=== PATIENT | male | born 2005 | race Caucasian/White ===

== ENCOUNTER 2023-08-11 13:30 | Emergency (ER) | payer BC, SELFPAY ==
[2023-08-11 13:38] VITALS: BP 130/66; PULSE 101; RESP 20; TEMP 36.4; O2SAT 100
[2023-08-11 15:27] VITALS: BP 136/73; PULSE 79; RESP 18; TEMP 36.8; O2SAT 100
[2023-08-11 15:55] VITALS: BP 124/79; PULSE 82; RESP 17; O2SAT 100
--- NOTE | 2023-08-11 15:57 | ED.EPISTAXIS ---
HPI - Epistaxis General Chief complaint: Epistaxis Stated complaint: nose bleed Time Seen by Provider: 08/11/23 15:57 Source: patient Mode of arrival: ambulatory Limitations: no limitations History of Present Illness HPI Narrative: Patient is a 18-year-old male who presents the ED with report of epistaxis. Patient reports he has had intermittent nosebleeds over the last 3 days. He notes he lives in a dorm room at [facility] and his room has been very dry lately. He does have history of nosebleeds in the past with weather changes. Today, nosebleed began approximately 2 hours prior to arrival and he was unable to control bleeding at home. States it felt as though was coming out of his left nare. Feels blood running down the back of his throat now. Denies dizziness, lightheadedness, syncope, nausea, vomiting. Related Data Allergies Allergy/AdvReac Type Severity Reaction Status Date / Time No Known Allergies Allergy Verified 08/11/23 13:31 Review of Systems Review of Systems: CONSTITUTIONAL: Denies fever, chills, or sweats. ENT: See HPI. CARDIOVASCULAR: Denies chest pain. RESPIRATORY: Denies dyspnea. GASTROINTESTINAL: Denies abdominal pain, nausea, vomiting. All systems reviewed & are unremarkable except as noted in HPI and below Exam Narrative: GENERAL: Well appearing, well-nourished, non-toxic, in no acute distress. HEAD: Normocephalic, atraumatic. ENT: Bloody mucous in L nare, no active bleeding. No area of bleeding appreciated on Kiesselbach plexus. R nare clear. Small amount of blood draining down posterior pharynx. No profuse bleeding. No tonsillar bleeding or hypertrophy. No stridor or distress. RESPIRATORY: Airway patent, respirations nonlabored. CARDIOVASCULAR: Regular rate and rhythm MUSCULOSKELETAL: Moves all extremities. No gross deformities. SKIN: Warm, dry, normal color. NEURO: A&O X3. Speech clear. PSYCHIATRIC: Appropriate mood and affect. Normal interaction. Course Vital Signs Vital signs: Vital Signs Temperature 97.5 F L 08/11/23 13:38 Pulse Rate 101 H 08/11/23 13:38 Respiratory Rate 20 08/11/23 13:38 Blood Pressure 130/66 08/11/23 13:38 Pulse Oximetry 100 08/11/23 13:38 Oxygen Delivery Room Air 08/11/23 13:38 Temperature 98.3 F 08/11/23 15:27 Pulse Rate 82 08/11/23 15:55 Respiratory Rate 17 08/11/23 15:55 Blood Pressure 124/79 08/11/23 15:55 Pulse Oximetry 100 08/11/23 15:55 Oxygen Delivery Room Air 08/11/23 13:38 MDM - Epistaxis MDM Narrative Medical decision making narrative: Patient presented to ED with left-sided epistaxis. Nasal clamp placed upon arrival to the ED. By the time of my evaluation, vitals are stable. Clamp was removed by myself with no further epistaxis. No appreciable area of bleeding identified on exam. He was monitored in the ED for around 20 minutes after clamp removal with no further bleeding. He will be discharged at this time. No evidence of posterior epistaxis on exam. Advised patient to utilize Afrin, Vaseline at night in nares, follow-up with ENT. Discussed management of epistaxis at home should bleeding recur. Given strict return precautions. Patient in agreement w/ plan. Discharged in stable condition. Medical Records Attestation: I reviewed the patient's medical records. Discharge Plan Discharge Clinical Impression: Epistaxis Patient Disposition: Home, Self-Care Condition: Stable Instructions: Antibiotic Form, Nosebleed (ED) Additional Instructions: You may utilize Afrin if you experience further bleeding, apply 2 sprays into each nostril. Apply pressure immediately with nasal clamp if nosebleed recurs. Hold constant pressure for at least 30 minutes before re-evaluating for further bleeding. If your still bleeding after 1 consistent hour of pressure, return to the ED. Avoid rubbing or blowing nose. Recommend sleeping with humidifier or applying Vaseline inside your nose at night to avoid yo
== END 2023-08-11 16:19 | disposition home or self-care (01) ==
LOC: ANHED 16:09
PROVIDERS: Emergency Provider Physician Assistant
DX: R04.0 Epistaxis (principal)
CPT/HCPCS: 99281